=== PATIENT | male | born 1945 | race Caucasian/White ===

== ENCOUNTER 2017-03-19 10:16 | Emergency (ER) | payer MEDICARE ==
--- NOTE | 2017-03-19 10:41 | Emergency Department Record ---
History of Present Illness - General Chief Complaint: Difficulty Swallowing Stated Complaint: BONE STUCK IN THROAT Time Seen by Provider: 03/19/17 10:32 Source: Patient Mode of Arrival: Ambulatory Limitations: No limitations - History of Present Illness Initial Comments: The patient is here due to feeling like a chicken bone is stuck in the throat. He was eating last night and felt like a piece of bone got caught in his throat. Now he has a FB sensation to the throat and has mild pain with swallowing or eating. He is able to eat and drink with no difficulty but with mild discomfort. There are no breathing issues. The patient also has had L sinus congestion off and on for 2-3 months and would like an Abx for it. Onset/Timin -: Hour(s) Place: Other Severity: Mild Improves With: None Worsens With: None - Related Data Home Medications: Previous Rx's Medication Instructions Recorded Amoxicillin/Potassium Clav 1 tab PO BID #28 tab 03/19/17 [Augmentin 875-125 Tablet] Allergies/Adverse Reactions: Allergies Allergy/AdvReac Type Severity Reaction Status Date / Time No Known Drug Allergies Allergy Verified 03/19/17 10:21 Travel Screening - Travel/Exposure Within Last 30 Days Have you traveled within the last 30 days?: Yes Location Detail:: [place] - [facility] Travel Details Have you been exposed to anyone with a communicable illness?: No - Travel Symptoms Symptom Screening: None Review of Systems Constitutional: Denies: Chills, Fever Past Medical History - SOCIAL HISTORY Smoking Status: Never smoker Alcohol Use: Occasional Drug Use: None - RESPIRATORY Hx Respiratory Disorders: No - CARDIOVASCULAR Hx Cardio Disorders: No - NEURO Hx Neuro Disorders: No - GI Hx GI Disorders: No - Hx Genitourinary Disorders: No - ENDOCRINE Hx Endocrine Disorders: No - MUSCULOSKELETAL Hx Musculoskeletal Disorders: No - PSYCH Hx Psych Problems: No - HEMATOLOGY/ONCOLOGY Hx Hematology/Oncology Disorders: No Family Medical History Any Significant Family History?: No Physical Exam - General General Appearance: Alert, Oriented x3, Cooperative, No acute distress - Head Head exam: Atraumatic, Normocephalic, Normal inspection - Eye Eye exam: Normal appearance, PERRL - ENT ENT exam: Normal exam, Mucous membranes moist, Normal external ear exam, Normal orophraynx, TM's normal bilaterally Nasal Exam: Sinus tenderness (L maxillary.) Throat exam: Normal inspection. negative: Tonsillar erythema, Tonsillomegaly, Tonsillar exudate - Neck Neck exam: Normal inspection, Full ROM. negative: Tenderness - Respiratory Respiratory exam: Normal lung sounds bilaterally. negative: Respiratory distress - Cardiovascular Cardiovascular Exam: Regular rate, Normal rhythm, Normal heart sounds - Extremities Extremities exam: Normal inspection, Full ROM, Normal capillary refill. negative: Tenderness - Neurological Neurological exam: Motor sensory deficit, Normal gait. negative: Abnormal gait Course Vital Signs 03/19/17 10:22 Temperature 97.7 F Pulse Rate 72 Respiratory 18 Rate Blood Pressure 132/87 Pulse Ox 97 - Reevaluation(s) Reevaluation #1: The patient is doing better after the GI cocktail and the pain has resolved. I did explain to him that most likely his esophagus was scratched by the bone and it usually heals in a day or two. He is to use Maalox as directed and F/U with his PCP if not better. The patient also will be prescribed Augmentin for his sinus issues. 03/19/17 12:15 Medical Decision Making - Data Complexity MDM Data: X-Ray Ordered and/or Reviewed (ST Neck: Neg.) Disposition Disposition: Discharge Clinical Impression: Sinusitis Qualifiers: Sinusitis location: unspecified location Chronicity: chronic Qualified Code(s) : J32.9 - Chronic sinusitis, unspecified Disposition: Home, Self-Care Condition: (1) Good Instructions: Sinusitis (ED) Additional Instructions: Please use Maalox 2 tablespoons 4 times a day for 3 days. Please also start the Augmentin. Please see your PCP if not better in 3 days. Return to the ER if worse. Prescriptions: Amoxicillin/Potassium Clav [Augmentin 875-125 Tablet] 1 tab PO BID #28 tab Forms: Patient Portal Access Time of Disposition: 11:42 Quality - Quality Measures Quality Measures: N/A - Blood Pressure Screening View Details: Yes Does Patient Have Any of the Following: No Blood Pressure Classification: Pre-Hypertensive BP Reading Systolic Measurement: 123 Diastolic Measurement: 88 Screening for High Blood Pressure: < Pre-Hypertensive BP, F/U Documented > [ [id number]] Pre-Hypertensive Follow-up Interventions: Referral to alternative/primary care provider.
[2017-03-19] MEDS: MAGNESIUM HYDROXIDE/AL HYDROX 30 ML, LIDOCAINE VISC 2% 200 MG PO ONE ×2 (11:11)
--- NOTE | 2017-03-20 10:36 | RADIOLOGY REPORT ---
EXAM: SOFT TISSUES OF THE NECK, TWO VIEWS HISTORY: PATIENT HAS A CHOKING SENSATION. PATIENT IS CHECKING FOR A POSSIBLE CHICKEN BONE LODGED IN THROAT. TECHNIQUE: Two views of the soft tissues of the neck are provided without comparison examinations. FINDINGS: Degenerative changes of the cervical spine are noted. There is no radiographic evidence of a fracture or dislocation of the cervical spine. The prevertebral soft tissues are unremarkable. The aryepiglottic folds are unremarkable. The upper airways are patent. The epiglottis is unremarkable. No obvious radiopaque foreign bodies are identified. IMPRESSION: UNREMARKABLE PLAIN FILM RADIOGRAPH OF THE SOFT TISSUES OF THE NECK. DEGENERATIVE CHANGES OF THE CERVICAL SPINE ARE NOTED. JOB NUMBER: [id number] MTDD
== END 2017-03-19 11:49 | disposition home or self-care (01) ==
LOC: ER 10:16
DX: R09.89 Other specified symptoms and signs involving the circulatory and respiratory systems (principal); J32.9 Chronic sinusitis, unspecified
CPT/HCPCS: 70360; 99283

== ENCOUNTER 2018-10-18 12:27 | Day surgery (SDC) | payer MEDICARE ==
[2018-10-18] MEDS ORDERED: LIDOCAINE 2% MDV (20MG/ML) 20ML VIAL IV ONE (12:28)
[2018-10-18] MEDS ORDERED: FENTANYL PF 100MCG/2ML VIAL IV ONE (12:28)
[2018-10-18] MEDS ORDERED: PROPOFOL 10 MG/ML VIAL IV ONE (12:28)
--- NOTE | 2018-10-19 07:51 | Operative Note ---
DATE OF SURGERY: 10/18/2018 OPERATION: ESOPHAGOGASTRODUODENOSCOPY with biopsy. PREOPERATIVE DIAGNOSIS: Dyspepsia and chronic GERD. POSTOPERATIVE DIAGNOSES: 1. GE junction erythema. 2. Gastric erosions and superficial ulcerations. 3. Bulbar duodenitis. PROCEDURE: After informed consent was obtained from the patient, he was placed in the left lateral decubitus position in the endoscopy suite, sedated and monitored by the department of anesthesia. A well-lubricated [id number] gastroscope was placed in the posterior oropharynx under direct visualization and passed to the proximal esophagus and advanced through the proximal, mid, and distal esophagus. The GE junction demonstrated erythematous changes. No strictures, varices, or mass lesions were seen. The gastric body and the antrum were carefully inspected revealing scattered erosions and superficial ulcerations throughout the antrum. The duodenal bulb revealed edematous changes with an erosion/superficial ulcer. The duodenal sweep was unremarkable. J-turn views of the proximal stomach were unremarkable. The endoscope was straightened. Gastric biopsies were obtained for histology in particular to rule out H pylori. The endoscope removed from the patient with no new findings noted. RECOMMENDATIONS: I would suggest the patient be on pantoprazole 40 mg daily. In addition, I would recommend a repeat upper endoscopy in 8 weeks to assess healing and at that time, I would recommend he undergo a colonoscopy, as he has never had a screening exam. As always, thank you for allowing me to participate in the healthcare of your patients. CC: TAMRA Gross
== END 2018-10-18 14:30 | disposition home or self-care (01) ==
LOC: HOP 12:27
PROVIDERS: ATTEND Internal Medicine Gastroenterology
DX: R10.13 Epigastric pain (principal); K21.9 Gastro-esophageal reflux disease without esophagitis; K31.89 Other diseases of stomach and duodenum; K25.9 Gastric ulcer, unspecified as acute or chronic, without hemorrhage or perforation; K29.80 Duodenitis without bleeding